=== PATIENT | male | born 1940 | race Native Hawaiian/Other Pacific Islander ===

== ENCOUNTER 2018-05-02 03:31 | Observation (INO) | payer MEDICARE ==
[2018-01-31 10:27] VITALS: BMI 21.1
[2018-05-02 05:06] LABS: ALB/GLOB RATIO 1.4 (1.0-2.1); ALT/SGPT 24 U/L (21-72); AST/SGOT 35 U/L (17-59); BLOOD UREA NITROGEN 17 mg/dL (9-20); CALCIUM 8.7 mg/dl (8.6-10.4); GFR NON-AFRICAN AMERICAN > 60
[2018-05-02 05:16] LABS: BASO # 0.1 K/uL (0.0-0.2); BASO % 2.1 % (0.0-2.0); EOS # 0.3 K/uL (0.0-0.7); EOS % 6.4 % (0.0-4.0); HEMOGLOBIN 14.4 g/dL (12.0-18.0); LYMPH # 1.2 K/uL (1.0-4.3); LYMPH % 22.8 % (20.0-40.0); MEAN CELL VOLUME 95.4 fL (80.0-94.0); MEAN CORPUSCULAR HEMOGLOBIN 31.6 pg (27.0-31.0); MEAN CORPUSCULAR HGB CONC 33.1 g/dL (33.0-37.0); MONO # 0.4 K/uL (0.0-0.8); MONO % 6.9 % (0.0-10.0); NEUT # 3.3 K/uL (1.8-7.0); NEUT % 61.8 % (50.0-75.0); NRBC % 0.1 % (0.0-2.0); RBC 4.56 Mil/uL (4.40-5.90); RED CELL DISTRIBUTION WIDTH 12.8 % (11.5-14.5); WHITE BLOOD COUNT 5.4 K/uL (4.8-10.8)
--- NOTE | 2018-05-02 05:32 | C.PDOC ---
History Of Present Illness 77 year old male presents to the ER with a complaint of intermittent chest pain for the past 2 days. Patient states the pain usually occurs when he is at rest, when he is active and walking he feels fine. He reports having stents placed in 01/2018. at bedside states that after stent placement patient's HTN medication was changed and since then his blood pressure has been more elevated. Denies cough, SOB, abdominal pain, or leg swelling. Time Seen by Provider: 05/02/18 04:27 Chief Complaint (Nursing): Chest Pain History Per: Patient History/Exam Limitations: no limitations Onset/Duration Of Symptoms: Days (2), Intermittent Episodes Current Symptoms Are (Timing): Still Present Associated Symptoms: denies: Nausea, Dyspnea, Diaphoresis, Syncope Modifying Factors: None Exacerbating Factors: None Alleviating Factors: None Recent travel outside of the [place]: No Past Medical History Reviewed: Historical Data, Nursing Documentation, Vital Signs Vital Signs: Last Vital Signs Temp 97.5 F L 05/02/18 03:39 Pulse 85 05/02/18 03:39 Resp 14 05/02/18 03:39 BP 195/101 H 05/02/18 03:39 Pulse Ox 98 05/02/18 03:39 - Medical History PMH: HTN Denies: Chronic Kidney Disease - [facility] Procedures FLUOROSCOPY OF LEFT HEART USING LOW OSMOLAR CONTRAST (01/26/18) FLUOROSCOPY OF MULT COR ART USING L OSM CONTRAST (01/26/18) MEASURE OF CARDIAC SAMPL & PRESSURE, L HEART, PERC APPROACH (01/26/18) TETANUS TOXOID ADMINIST (05/15/02) Family History: States: Unknown Family Hx - Social History Hx Alcohol Use: No Hx Substance Use: No - Immunization History Hx Tetanus Toxoid Vaccination: No Hx Influenza Vaccination: No Hx Pneumococcal Vaccination: No Review Of Systems Constitutional: Negative for: Fever, Chills Cardiovascular: Positive for: Chest Pain Respiratory: Negative for: Cough, Shortness of Breath Gastrointestinal: Negative for: Nausea, Vomiting Musculoskeletal: Negative for: Neck Pain, Shoulder Pain, Arm Pain Neurological: Negative for: Weakness, Numbness Physical Exam - Physical Exam Appears: Non-toxic, Chronically Ill Skin: Normal Color, Warm, Dry, No Rash Head: Atraumatic, Normacephalic Eye(s): bilateral: Normal Inspection Oral Mucosa: Moist Neck: Normal ROM, No Midline Cervical Tenderness, No Paracervical Tenderness, Supple Chest: Symmetrical, No Tenderness Cardiovascular: Rhythm Regular Respiratory: Normal Breath Sounds, No Rales, No Rhonchi, No Wheezing Gastrointestinal/Abdominal: Soft, No Tenderness Back: No CVA Tenderness Extremity: Normal ROM (x4), No Tenderness, No Swelling Neurological/Psych: Oriented x3, Normal Speech, Normal Motor Gait: Steady ED Course And Treatment - Laboratory Results Result Diagrams: 05/02/18 04:43 05/02/18 04:43 ECG: Interpreted By Me, Viewed By Me ECG Rhythm: Sinus Rhythm ECG Interpretation: Normal Rate From EC O2 Sat by Pulse Oximetry: 98 (Room air) Pulse Ox Interpretation: Normal - Radiology CXR: Interpreted by Me CXR Interpretation: Yes: Other (RML hazy opacity). No: Cardiomegaly Medical Decision Making Medical Decision Making: EKG, blood work, and CXR ordered. Aspirin administered. [facility] to [facility] the patient to his service. CXR shows hazy opacity. CT scan of the chest ordered. Disposition - Disposition Disposition: HOSPITALIZED Disposition Time: 06:20 Condition: STABLE Forms: [facility] (Kyrgyz) - Clinical Impression Clinical Impression: Chest pain - PA / PROPERTY CLAIM REP / Resident Statement MD/DO has reviewed & agrees with the documentation as recorded. - Scribe Statement The provider has reviewed the documentation as recorded by the Scribe Rayshawn Bone All medical record entries made by the Scribe were at my direction and personally dictated by me. I have reviewed the chart and agree that the record accurately reflects my personal performance of the history, physical exam, medical decision making, and the department course for this patient. I have also personally directed, reviewed, and agree with the discharge instructions and disposition.
[2018-05-02] MEDS ORDERED: Nitroglycerin 2% Ointment Foilpak UD TOP STA (06:31)
[2018-05-02] MEDS ORDERED: Nitroglycerin 2% Ointment Foilpak UD TOP ONE ×2 (06:36→15:00)
--- NOTE | 2018-05-02 07:47 | CP.PCM.HP ---
<Catrina Yen - Last Filed: 05/02/18 09:05> History of Present Illness - History of Present Illness History of Present Illness: Catrina Yen PGY1 H&P for Dr. Gamez Pt is a 77M with PMH of HTN and CAD s/p stents in 01/25, presented to ED with chest pain for 2 days. Pt reports discomfort for the past 2 days in the chest b/l. He describes it as intermittent, and upon rest, with no chest paint with activity. He says the pain worsened today which prompted his ED visit. He attributes his chest pain to his high blood pressure. He reported associated sweating, but denies dizziness, blurry vision, palpitations, nausea, or radiation of the pain. He denies abdominal pain, diarrhea, dysuria. SxH: denies SocH: former >30 pack yr smoker, quit 10 years ago FamH: denies Allergies: NKDA Meds: losartan/HCTZ 100/12.5mg PO daily, toprol XL 25mg PO daily, crestor 10mg PO daily, oxybutynin 5mg PO daily, ASA 81mg PO daily PMD: Nigel Gonzalez Present on Admission - Present on Admission Any Indicators Present on Admission: No Review of Systems - Constitutional Constitutional: Excessive Sweating. absent: Weakness - EENT Eyes: absent: Blurred Vision - Cardiovascular Cardiovascular: Chest Pain, Chest Pain at Rest, Diaphoresis. absent: Chest Pain with Activity, Dyspnea, Pain Radiating to Arm/Neck/Jaw, Lightheadedness, Palpitations - Gastrointestinal Gastrointestinal: absent: Abdominal Pain, Nausea, Vomiting - Genitourinary Genitourinary: absent: Dysuria - Neurological Neurological: absent: Confusion, Headaches, Vertigo Past Patient History - Infectious Disease Hx of Infectious Diseases: None - Past Medical History & Family History Past Medical History?: Yes - Past Social History Smoking Status: Never Smoked - CARDIAC Hx Hypertension: Yes - PULMONARY Hx Respiratory Disorders: No - NEUROLOGICAL Hx Neurological Disorder: No - HEENT Hx HEENT Problems: No - RENAL Hx Chronic Kidney Disease: No - ENDOCRINE/METABOLIC Hx Endocrine Disorders: No - HEMATOLOGICAL/ONCOLOGICAL Hx Blood Disorders: No - INTEGUMENTARY Hx Dermatological Problems: No - MUSCULOSKELETAL/RHEUMATOLOGICAL Hx Musculoskeletal Disorders: No Hx Falls: No - GASTROINTESTINAL Hx Gastrointestinal Disorders: No - GENITOURINARY/GYNECOLOGICAL Hx Prostate Problems: Yes - PSYCHIATRIC Hx Substance Use: No - SURGICAL HISTORY Hx Surgeries: Yes (BILATERAL CATARACT SX, PROSTATE SX 4 YRS AGO,) - ANESTHESIA Hx Anesthesia: No Meds Allergies/Adverse Reactions: Allergies Allergy/AdvReac Type Severity Reaction Status Date / Time No Known Allergies Allergy Verified 05/02/18 03:42 Physical Exam - Constitutional Appears: Well, No Acute Distress - Head Exam Head Exam: ATRAUMATIC, NORMOCEPHALIC - Eye Exam Eye Exam: EOMI, PERRL - ENT Exam ENT Exam: Mucous Membranes Moist - Respiratory Exam Respiratory Exam: Clear to Auscultation Bilateral, NORMAL BREATHING PATTERN. absent: Rales, Rhonchi, Wheezes - Cardiovascular Exam Cardiovascular Exam: REGULAR RHYTHM, +S1, +S2. absent: Gallop, Rubs, Systolic Murmur - GI/Abdominal Exam GI & Abdominal Exam: Normal Bowel Sounds, Soft. absent: Distended, Tenderness - Extremities Exam Extremities exam: Positive for: normal inspection. Negative for: pedal edema - Neurological Exam Neurological exam: Alert, CN II-XII Intact, Oriented x3 - Psychiatric Exam Psychiatric exam: Normal Affect, Normal Mood - Skin Skin Exam: Dry, Normal Color Results - Vital Signs Recent Vital Signs: Last Vital Signs Temp 97.5 F L 05/02/18 03:39 Pulse 78 05/02/18 07:10 Resp 19 05/02/18 07:10 BP 165/94 H 05/02/18 07:10 Pulse Ox 99 05/02/18 07:10 - Labs Result Diagrams: 05/02/18 04:43 05/02/18 04:43 Labs: Laboratory Results - last 24 hr 05/02/18 05/02/18 05/02/18 04:43 04:43 04:43 WBC 5.4 RBC 4.56 Hgb 14.4 Hct 43.5 MCV 95.4 H MCH 31.6 H MCHC 33.1 RDW 12.8 Plt Count 201 MPV 9.0 Neut % (Auto) 61.8 Lymph % (Auto) 22.8 [place] % (Auto) 6.9 Eos % (Auto) 6.4 H Baso % (Auto) 2.1 H Neut # (Auto) 3.3 Lymph # (Auto) 1.2 [place] # (Auto) 0.4 Eos # (Auto) 0.3 Baso # (Auto) 0.1 PT 11.0 INR 1.0 APTT 35 H Sodium 135 Potassium 3.3 L Chloride 100 Carbon Dioxide 26 Anion Gap 12 BUN 17 Creatinine 1.0 Est GFR ( Amer) > 60 Est GFR (Non-Af Amer) > 60 Random Glucose 115 H Calcium 8.7 Total Bilirubin 0.6 AST 35 ALT 24 Alkaline Phosphatase 65 Troponin I < 0.0120 Total Protein 6.9 Albumin 4.0 Globulin 2.9 Albumin/Globulin Ratio 1.4 Assessment & Plan - Assessment and Plan (Free Text) Assessment: Pt is a 77M with PMH of HTN and CAD s/p 2 stents in 01/25, presented to ED with chest pain for 2 days, admitted for r/o ACS. First troponin negative. Plan: Chest Pain - h/o CAD, s/p 2 ISELA in 01/2018 after found to have NSTEMI and high grade stenosis of L circumflex and diagonal a. - pt reports intermittent mild chest pain for 2 days - received ASA and nitro SL and paste in ED, reports relief - EKG: NSR - trop neg x1 - CT chest: questionable R sided mass, f/u official read - ECHO 01/25: normal LV function, mild TR, moderate pulmonary HTN - continue home ASA 81mg PO daily - brillinta 90mg PO BID - nitro paste 1/2 inch topical - lovenox 60mg SC BID - crestor 10mg PO HS - f/u remaining trops - Cardiology consulted, Dr. Cabrera - f/u recs Hypokalemia - K+ 3.3 on admission - repleted, monitor on daily CMP H/o HTN - continue home losartan/HCTZ 100/12.5mg PO daily - continue home metoprolol succinate 25mg PO daily PPX GI: pepcid 20mg po BID DVT: therapeutic lovenox HHD Case reviewed and plan discussed with Dr. Gamez <Dar Gamez - Last Filed: 05/02/18 09:25> Results - Vital Signs Recent Vital Signs: Last Vital Signs Temp 97.7 F 05/02/18 07:15 Pulse 70 05/02/18 08:29 Resp 18 05/02/18 07:15 BP 136/71 05/02/18 07:45 Pulse Ox 96 05/02/18 07:15 - Labs Result Diagrams: 05/02/18 04:43 05/02/18 04:43 Labs: Laboratory Results - last 24 hr 05/02/18 05/02/18 05/02/18 04:43 04:43 04:43 WBC 5.4 RBC 4.56 Hgb 14.4 Hct 43.5 MCV 95.4 H MCH 31.6 H MCHC 33.1 RDW 12.8 Plt Count 201 MPV 9.0 Neut % (Auto) 61.8 Lymph % (Auto) 22.8 [place] % (Auto) 6.9 Eos % (Auto) 6.4 H Baso % (Auto) 2.1 H Neut # (Auto) 3.3 Lymph # (Auto) 1.2 [place] # (Auto) 0.4 Eos # (Auto) 0.3 Baso # (Auto) 0.1 PT 11.0 INR 1.0 APTT 35 H Sodium 135 Potassium 3.3 L Chloride 100 Carbon Dioxide 26 Anion Gap 12 BUN 17 Creatinine 1.0 Est GFR ( Amer) > 60 Est GFR (Non-Af Amer) > 60 Random Glucose 115 H Calcium 8.7 Total Bilirubin 0.6 AST 35 ALT 24 Alkaline Phosphatase 65 Troponin I < 0.0120 Total Protein 6.9 Albumin 4.0 Globulin 2.9 Albumin/Globulin Ratio 1.4 Attending/Attestation - Attestation I have personally seen and examined this patient.: Yes I have fully participated in the care of the patient.: Yes I have reviewed all pertinent clinical information: Yes Notes (Text): 05/02/18 09:17 Medical attending: Patient was seen and examined by me. Agree with the above note by the resident The patient was not in any acute distress when we came and saw however he reported that he had relief with the administration of the topical nitroglycerin as well as the SL nitroglycerin The patient was here in January from a NSTEMI at that time and it appears he had two ISELA. We will need to consult his licensing officer. The first troponin was negative however will cover patient with Lovenox 60 SQ BID for the time being and also he probably was on brillinta or plavix - he says he does not remember but we will place brillinta for the time being while we try to find pharmacy number Also a CT scan was done - the official read is pending however per my own review he has an irregular shaped pleural mass maybe 1 cm x 2 cm R lung at the border of the lower and upper lobes. We will have to see what the official report says. I looked at a CT in 2013 and he did not have those findings then. There is a smoking history he says. Patient denied sputum production or fever. Depending on the report he may need further work up Dar Gamez
[2018-05-02 08:15] VITALS: RESP 18; TEMP 97.7; O2SAT 96
[2018-05-02] MEDS: Potassium Chloride 20 mEq/15 ml LIQ UD PO SCH ×2 (08:55→14:33)
[2018-05-02 09:53] VITALS: BP 124/74
[2018-05-02] MEDS ORDERED: Enoxaparin 40 mg Syringe SC SCH (10:00)
[2018-05-02] MEDS ORDERED: Metoprolol Succinate 25 mg XL Tab PO SCH (10:00)
[2018-05-02] MEDS ORDERED: Enoxaparin 60 mg Syringe SC SCH (10:00)
--- NOTE | 2018-05-02 10:36 | CT ---
Date of service: 05/02/2018 PROCEDURE: CT Chest without contrast HISTORY: chest pain, hazy opacity in the right middle lobe COMPARISON: None available. TECHNIQUE: Contiguous axial images were obtained through the chest without intravenous contrast enhancement. Sagittal and coronal reconstructions were performed. Radiation dose: Total exam DLP = 158.58 mGy-cm. This CT exam was performed using one or more of the following dose reduction techniques: Automated exposure control, adjustment of the mA and/or kV according to patient size, and/or use of iterative reconstruction technique. FINDINGS: LUNGS: 3.4 x 1.0 centimeter subpleural opacity in the right lower lobe with spiculated margins. This could represent pneumonia though malignancy is not excluded. MEDIASTINUM: Unremarkable thoracic aorta. No aneurysm. Normal sized heart. Main pulmonary artery unremarkable. No vascular congestion. No lymphadenopathy. No aortic atherosclerotic calcification. PLEURA: No pleural fluid. No pneumothorax. BONES: No fracture. No destructive lesion. UPPER ABDOMEN: Grossly unremarkable. OTHER FINDINGS: None. IMPRESSION: 3.4 x 1.0 centimeter subpleural opacity in the right lower lobe with spiculated margins. This could represent pneumonia though malignancy is not excluded.
--- NOTE | 2018-05-02 11:05 | RAD ---
Date of service: 05/02/2018 HISTORY: chest pain COMPARISON: 01/26/2018. FINDINGS: LUNGS: No active pulmonary disease. PLEURA: No significant pleural effusion identified, no pneumothorax apparent. CARDIOVASCULAR: Atherosclerotic calcifications identified primarily in the aortic arch. No radiographic findings to suggest acute or significant cardiovascular disease. OSSEOUS STRUCTURES: No significant abnormalities. VISUALIZED UPPER ABDOMEN: Normal. OTHER FINDINGS: None. IMPRESSION: No active disease. No significant interval change compared to the prior examination(s).
[2018-05-02 12:27] VITALS: PULSE 53
--- NOTE | 2018-05-02 14:03 | CP.PCM.DIS ---
<FarshadPauldeucesydnee - Last Filed: 05/02/18 13:58> Provider - Provider Date of Admission: 05/02/18 06:22 Attending physician: Dar Gamez DO Consults: 05/02/18 09:02 Cardiology Consult Routine Comment: Consulting Provider: Jesus Alberto Cabrera Consulting Physician: Jesus Alberto Cabrera Reason for Consult: pt with chest pain, h/o CAD s/p 2 stents in L circumflex 01/2505/02/18 13:33 Pulmonology Consult Routine Comment: Consulting Provider: Dann Perea Consulting Physician: Dann Perea Reason for Consult: pt w/ chest pain, CT showing R sided mass concerning for malignancy Time Spent in preparation of Discharge (in minutes): 70 Hospital Course - Lab Results Lab Results: Most Recent Lab Values WBC 5.4 K/uL (4.8-10.8) 05/02/18 04:43 RBC 4.56 Mil/uL (4.40-5.90) 05/02/18 04:43 Hgb 14.4 g/dL (12.0-18.0) 05/02/18 04:43 Hct 43.5 % (35.0-51.0) 05/02/18 04:43 MCV 95.4 fL (80.0-94.0) H 05/02/18 04:43 MCH 31.6 pg (27.0-31.0) H 05/02/18 04:43 MCHC 33.1 g/dL (33.0-37.0) 05/02/18 04:43 RDW 12.8 % (11.5-14.5) 05/02/18 04:43 Plt Count 201 K/uL (130-400) 05/02/18 04:43 MPV 9.0 fL (7.2-11.7) 05/02/18 04:43 Neut % (Auto) 61.8 % (50.0-75.0) 05/02/18 04:43 Lymph % (Auto) 22.8 % (20.0-40.0) 05/02/18 04:43 [place] % (Auto) 6.9 % (0.0-10.0) 05/02/18 04:43 Eos % (Auto) 6.4 % (0.0-4.0) H 05/02/18 04:43 Baso % (Auto) 2.1 % (0.0-2.0) H 05/02/18 04:43 Neut # (Auto) 3.3 K/uL (1.8-7.0) 05/02/18 04:43 Lymph # (Auto) 1.2 K/uL (1.0-4.3) 05/02/18 04:43 [place] # (Auto) 0.4 K/uL (0.0-0.8) 05/02/18 04:43 Eos # (Auto) 0.3 K/uL (0.0-0.7) 05/02/18 04:43 Baso # (Auto) 0.1 K/uL (0.0-0.2) 05/02/18 04:43 PT 11.0 SECONDS (9.7-12.2) 05/02/18 04:43 INR 1.0 05/02/18 04:43 APTT 35 SECONDS (21-34) H 05/02/18 04:43 Sodium 135 mmol/L (132-148) 05/02/18 04:43 Potassium 3.3 mmol/L (3.6-5.2) L 05/02/18 04:43 Chloride 100 mmol/L (98-107) 05/02/18 04:43 Carbon Dioxide 26 mmol/L (22-30) 05/02/18 04:43 Anion Gap 12 (10-20) 05/02/18 04:43 BUN 17 mg/dL (9-20) 05/02/18 04:43 Creatinine 1.0 mg/dL (0.8-1.5) 05/02/18 04:43 Est GFR ( Amer) > 60 05/02/18 04:43 Est GFR (Non-Af Amer) > 60 05/02/18 04:43 Random Glucose 115 mg/dL (75-110) H 05/02/18 04:43 Calcium 8.7 mg/dl (8.6-10.4) 05/02/18 04:43 Total Bilirubin 0.6 mg/dL (0.2-1.3) 05/02/18 04:43 AST 35 U/L (17-59) 05/02/18 04:43 ALT 24 U/L (21-72) 05/02/18 04:43 Alkaline Phosphatase 65 U/L (38-126) 05/02/18 04:43 Troponin I < 0.0120 ng/mL (0.00-0.120) 05/02/18 10:54 Total Protein 6.9 g/dL (6.3-8.3) 05/02/18 04:43 Albumin 4.0 g/dL (3.5-5.0) 05/02/18 04:43 Globulin 2.9 gm/dL (2.2-3.9) 05/02/18 04:43 Albumin/Globulin Ratio 1.4 (1.0-2.1) 05/02/18 04:43 - Hospital Course Hospital Course: Upon Admission: Pt is a 77M with PMH of HTN and CAD s/p stents in 01/25, presented to ED with chest pain for 2 days. Pt reports discomfort for the past 2 days in the chest b/l. He describes it as intermittent, and upon rest, with no chest paint with activity. He says the pain worsened today which prompted his ED visit. He attributes his chest pain to his high blood pressure. He reported associated sweating, but denies dizziness, blurry vision, palpitations, nausea, or radiation of the pain. He denies abdominal pain, diarrhea, dysuria. Pt was given nitro sublingual and paste, and ASA in the ED. Chest pain resolved. EKG showed normal sinus rhythm. Troponins x2 were negative Pt was admitted for chest pain r/o ACS. Hospital Course: CT chest showed a R sided pleural mass, questionable for malignancy. Pt felt the chest pain resolved. Cardio was consulted and recommended plavix. Pulmonology was consulted and recommended outpatient follow up for the questionable mass. Pt was deemed stable for discharge, as the chest pain was considered non-cardiac related. Upon Discharge: Pt was deemed stable for discharge to home. Pt was instructed to follow up with this primary care physician and Dr. Perea within 2 weeks. He was given a 10 day course of avelox. Pt understood instructions and agreed. Discharge Exam - Head Exam Head Exam: ATRAUMATIC, NORMOCEPHALIC - Eye Exam Eye Exam: EOMI, PERRL Pupil Exam: NORMAL ACCOMODATION - Respiratory Exam Respiratory Exam: Clear to PA & Lateral, NORMAL BREATHING PATTERN. absent: Rales, Rhonchi, Wheezes - Cardiovascular Exam Cardiovascular Exam: REGULAR RHYTHM, +S1, +S2. absent: Gallop, Rubs, Systolic Murmur - GI/Abdominal Exam GI & Abdominal Exam: Normal Bowel Sounds, Soft. absent: Distended, Tenderness - Neurological Exam Neurological exam: Alert, CN II-XII Intact, Normal Gait, Oriented x3 - Psychiatric Exam Psychiatric exam: Normal Affect, Normal Mood - Skin Skin Exam: Normal Color Discharge Plan - Discharge Medications Prescriptions: RX: Aspirin [Aspirin Chewable] 81 mg PO DAILY #30 chew RX: Clopidogrel [Plavix] 75 mg PO DAILY #30 tab RX: Losartan/Hydrochlorothiazide [Losartan-Hctz 100-12.5 mg Tab] 1 tab PO DAILY #30 tablet RX: Metoprolol Succinate XL [Toprol XL] 25 mg PO DAILY #30 tab Moxifloxacin [Avelox] 400 mg PO DAILY #10 tab RX: Oxybutynin [Ditropan Tab] 5 mg PO DAILY #30 tab RX: Rosuvastatin Calcium [Crestor] 10 mg PO HS #30 tab - Follow Up Plan Condition: STABLE Disposition: HOME/ ROUTINE Instructions: High Blood Pressure (DC), Moxifloxacin (Systemic), Chest Pain (DC), Low Salt Diet Additional Instructions: Please follow up with your Primary Care physician Dr. Gonzalez within 1 week. Please follow up with Dr. Perea, Resp Therapist, within 2 weeks. Please take avelox for 10 days. Please take your medications as prescribed. Please return to the emergency department if symptoms return. Take care and be well. Referrals: Dann Perea MD [Staff Provider] - <Dar Gamez - Last Filed: 05/02/18 15:07> Provider - Provider Date of Admission: 05/02/18 06:22 Attending physician: Dar Gamez DO Consults: 05/02/18 09:02 Cardiology Consult Routine Comment: Consulting Provider: Jesus Alberto Cabrera Consulting Physician: Jesus Alberto Cabrera Reason for Consult: pt with chest pain, h/o CAD s/p 2 stents in L circumflex 01/2505/02/18 13:33 Pulmonology Consult Routine Comment: Consulting Provider: Dann Perea Consulting Physician: Dann Perea Reason for Consult: pt w/ chest pain, CT showing R sided mass concerning for malignancy Hospital Course - Lab Results Lab Results: Most Recent Lab Values WBC 5.4 K/uL (4.8-10.8) 05/02/18 04:43 RBC 4.56 Mil/uL (4.40-5.90) 05/02/18 04:43 Hgb 14.4 g/dL (12.0-18.0) 05/02/18 04:43 Hct 43.5 % (35.0-51.0) 05/02/18 04:43 MCV 95.4 fL (80.0-94.0) H 05/02/18 04:43 MCH 31.6 pg (27.0-31.0) H 05/02/18 04:43 MCHC 33.1 g/dL (33.0-37.0) 05/02/18 04:43 RDW 12.8 % (11.5-14.5) 05/02/18 04:43 Plt Count 201 K/uL (130-400) 05/02/18 04:43 MPV 9.0 fL (7.2-11.7) 05/02/18 04:43 Neut % (Auto) 61.8 % (50.0-75.0) 05/02/18 04:43 Lymph % (Auto) 22.8 % (20.0-40.0) 05/02/18 04:43 [place] % (Auto) 6.9 % (0.0-10.0) 05/02/18 04:43 Eos % (Auto) 6.4 % (0.0-4.0) H 05/02/18 04:43 Baso % (Auto) 2.1 % (0.0-2.0) H 05/02/18 04:43 Neut # (Auto) 3.3 K/uL (1.8-7.0) 05/02/18 04:43 Lymph # (Auto) 1.2 K/uL (1.0-4.3) 05/02/18 04:43 [place] # (Auto) 0.4 K/uL (0.0-0.8) 05/02/18 04:43 Eos # (Auto) 0.3 K/uL (0.0-0.7) 05/02/18 04:43 Baso # (Auto) 0.1 K/uL (0.0-0.2) 05/02/18 04:43 PT 11.0 SECONDS (9.7-12.2) 05/02/18 04:43 INR 1.0 05/02/18 04:43 APTT 35 SECONDS (21-34) H 05/02/18 04:43 Sodium 135 mmol/L (132-148) 05/02/18 04:43 Potassium 3.3 mmol/L (3.6-5.2) L 05/02/18 04:43 Chloride 100 mmol/L (98-107) 05/02/18 04:43 Carbon Dioxide 26 mmol/L (22-30) 05/02/18 04:43 Anion Gap 12 (10-20) 05/02/18 04:43 BUN 17 mg/dL (9-20) 05/02/18 04:43 Creatinine 1.0 mg/dL (0.8-1.5) 05/02/18 04:43 Est GFR ( Amer) > 60 05/02/18 04:43 Est GFR (Non-Af Amer) > 60 05/02/18 04:43 Random Glucose 115 mg/dL (75-110) H 05/02/18 04:43 Calcium 8.7 mg/dl (8.6-10.4) 05/02/18 04:43 Total Bilirubin 0.6 mg/dL (0.2-1.3) 05/02/18 04:43 AST 35 U/L (17-59) 05/02/18 04:43 ALT 24 U/L (21-72) 05/02/18 04:43 Alkaline Phosphatase 65 U/L (38-126) 05/02/18 04:43 Troponin I < 0.0120 ng/mL (0.00-0.120) 05/02/18 10:54 Total Protein 6.9 g/dL (6.3-8.3) 05/02/18 04:43 Albumin 4.0 g/dL (3.5-5.0) 05/02/18 04:43 Globulin 2.9 gm/dL (2.2-3.9) 05/02/18 04:43 Albumin/Globulin Ratio 1.4 (1.0-2.1) 05/02/18 04:43 Attending/Attestation - Attestation I have personally seen and examined this patient.: Yes I have fully participated in the care of the patient.: Yes I have reviewed all pertinent clinical information, including history, physical exam and plan: Yes Notes (Text): 05/02/18 15:00 Medical attending: Patient was seen and examined by me. Agree with the above note by the medical historian. Patient was seen and evaluated by cardiology and pulmonary service today. I spoke with both cardiology as well as pulmonology - we will let patient go home today with PO Avelox. However he will need to follow up in two weeks with pulmonary because of the CT scan findings with the R lung. Per discussion with pulmonary he may require another CT scan in two weeks and if there is a need to - a biopsy can be done at that point for further information Dar Gamez
--- NOTE | 2018-05-02 14:07 | CP.PCM.CON ---
History of Present Illness - History of Present Illness History of Present Illness: reason for consultation: abnormal CAT scan of the chest 77-year-old male with history of coronary artery disease status post stent velasquez cement, hypertension, long history of smoking presented to emergency room with chest pain. CAT scan of the chest consistent with right lower lobe pleural-based density. Denies cough, denies fever chills SocH: former >30 pack yr smoker, quit 10 years ago FamH: denies Allergies: NKDA Meds: losartan/HCTZ 100/12.5mg PO daily, toprol XL 25mg PO daily, crestor 10mg PO daily, oxybutynin 5mg PO daily, ASA 81mg PO daily PMD: Nigel Gonzalez Review of Systems - Review of Systems All systems: reviewed and no additional remarkable complaints except (chest pain) Past Patient History - Infectious Disease Hx of Infectious Diseases: None - Past Medical History & Family History Past Medical History?: Yes - Past Social History Smoking Status: Never Smoked - CARDIAC Hx Hypertension: Yes - PULMONARY Hx Respiratory Disorders: No - NEUROLOGICAL Hx Neurological Disorder: No - HEENT Hx HEENT Problems: No - RENAL Hx Chronic Kidney Disease: No - ENDOCRINE/METABOLIC Hx Endocrine Disorders: No - HEMATOLOGICAL/ONCOLOGICAL Hx Blood Disorders: No - INTEGUMENTARY Hx Dermatological Problems: No - MUSCULOSKELETAL/RHEUMATOLOGICAL Hx Musculoskeletal Disorders: No Hx Falls: No - GASTROINTESTINAL Hx Gastrointestinal Disorders: No - GENITOURINARY/GYNECOLOGICAL Hx Prostate Problems: Yes - PSYCHIATRIC Hx Substance Use: No - SURGICAL HISTORY Hx Surgeries: Yes (BILATERAL CATARACT SX, PROSTATE SX 4 YRS AGO,) - ANESTHESIA Hx Anesthesia: No Meds Home Medications: Home Medication List Medication Instructions Recorded Confirmed Type Aspirin [Aspirin Chewable] 81 mg PO DAILY #30 chew 05/02/18 Rx Clopidogrel [Plavix] 75 mg PO DAILY #30 tab 05/02/18 Rx Losartan/Hydrochlorothiazide 1 tab PO DAILY #30 tablet 05/02/18 Rx [Losartan-Hctz 100-12.5 mg Tab] Metoprolol Succinate XL [Toprol XL] 25 mg PO DAILY #30 tab 05/02/18 Rx Moxifloxacin [Avelox] 400 mg PO DAILY #10 tab 05/02/18 Rx Oxybutynin [Ditropan Tab] 5 mg PO DAILY #30 tab 05/02/18 Rx Rosuvastatin Calcium [Crestor] 10 mg PO HS #30 tab 05/02/18 Rx Allergies/Adverse Reactions: Allergies Allergy/AdvReac Type Severity Reaction Status Date / Time No Known Allergies Allergy Verified 05/02/18 03:42 - Medications Medications: Current Medications Aspirin (Aspirin Chewable) 81 mg PO DAILY [facility] Last Admin: 05/02/18 09:53 Dose: 81 mg Clopidogrel Bisulfate (Plavix) 75 mg PO DAILY [facility] Last Admin: 05/02/18 10:53 Dose: 75 mg Enoxaparin Sodium (Lovenox) 40 mg SC DAILY [facility] Famotidine (Pepcid) 20 mg PO BID [facility] Last Admin: 05/02/18 09:53 Dose: 20 mg Hydrochlorothiazide (Microzide) 12.5 mg PO DAILY [facility] Last Admin: 05/02/18 09:53 Dose: 12.5 mg Azithromycin 500 mg/ Sodium (Chloride) 250 mls @ 250 mls/hr IVPB Q24H [facility]; Protocol Ceftriaxone Sodium 1 gm/ (Sodium Chloride) 100 mls @ 100 mls/hr IVPB DAILY [facility]; Protocol Losartan Potassium (Cozaar) 100 mg PO DAILY [facility] Last Admin: 05/02/18 09:53 Dose: 100 mg Metoprolol Succinate (Toprol Xl) 25 mg PO DAILY [facility] Last Admin: 05/02/18 09:53 Dose: 25 mg Nitroglycerin (Nitro-Bid 2% Oint) 1 ea TOP ONCE ONE Stop: 05/02/18 15:01 Oxybutynin Chloride (Ditropan Tab) 5 mg PO DAILY [facility] Last Admin: 05/02/18 10:53 Dose: 5 mg Rosuvastatin Calcium (Crestor) 10 mg PO [facility] Physical Exam - Head Exam Head Exam: ATRAUMATIC, NORMOCEPHALIC - ENT Exam ENT Exam: Mucous Membranes Moist - Neck Exam Neck exam: Positive for: Normal Inspection - Respiratory Exam Respiratory Exam: Clear to Auscultation Bilateral - Cardiovascular Exam Cardiovascular Exam: REGULAR RHYTHM - GI/Abdominal Exam GI & Abdominal Exam: Normal Bowel Sounds, Soft - Extremities Exam Extremities exam: Positive for: normal inspection - Neurological Exam Neurological exam: Alert, Oriented x3 Results - Vital Signs Recent Vital Signs: Last Vital Signs Temp 97.7 F 05/02/18 07:15 Pulse 53 L 05/02/18 12:14 Resp 18 05/02/18 07:15 BP 124/74 05/02/18 09:52 Pulse Ox 96 05/02/18 07:15 - Labs Result Diagrams: 05/02/18 04:43 05/02/18 04:43 Labs: Laboratory Results - last 24 hr 05/02/18 05/02/18 05/02/18 04:43 04:43 04:43 WBC 5.4 RBC 4.56 Hgb 14.4 Hct 43.5 MCV 95.4 H MCH 31.6 H MCHC 33.1 RDW 12.8 Plt Count 201 MPV 9.0 Neut % (Auto) 61.8 Lymph % (Auto) 22.8 [place] % (Auto) 6.9 Eos % (Auto) 6.4 H Baso % (Auto) 2.1 H Neut # (Auto) 3.3 Lymph # (Auto) 1.2 [place] # (Auto) 0.4 Eos # (Auto) 0.3 Baso # (Auto) 0.1 PT 11.0 INR 1.0 APTT 35 H Sodium 135 Potassium 3.3 L Chloride 100 Carbon Dioxide 26 Anion Gap 12 BUN 17 Creatinine 1.0 Est GFR ( Amer) > 60 Est GFR (Non-Af Amer) > 60 Random Glucose 115 H Calcium 8.7 Total Bilirubin 0.6 AST 35 ALT 24 Alkaline Phosphatase 65 Troponin I < 0.0120 Total Protein 6.9 Albumin 4.0 Globulin 2.9 Albumin/Globulin Ratio 1.4 05/02/18 10:54 WBC RBC Hgb Hct MCV MCH MCHC RDW Plt Count MPV Neut % (Auto) Lymph % (Auto) [place] % (Auto) Eos % (Auto) Baso % (Auto) Neut # (Auto) Lymph # (Auto) [place] # (Auto) Eos # (Auto) Baso # (Auto) PT INR APTT Sodium Potassium Chloride Carbon Dioxide Anion Gap BUN Creatinine Est GFR ( Amer) Est GFR (Non-Af Amer) Random Glucose Calcium Total Bilirubin AST ALT Alkaline Phosphatase Troponin I < 0.0120 Total Protein Albumin Globulin Albumin/Globulin Ratio Assessment & Plan - Assessment and Plan (Free Text) Assessment: 77-year-old male admitted with chest pain, CAT scan of the chest consistent with pleural based density Pneumonia versus malignancy Avelox for 10 days If no resolution will consider biopsy Patient advised follow up in the office after 2 weeks
[2018-05-02] MEDS ORDERED: Azithromycin 500 MG in Sodium Chloride 0.9% 250 ML IVPB SCH (16:00)
[2018-05-03] MEDS ORDERED: Enoxaparin 40 mg Syringe SC SCH (10:00)
--- NOTE | 2018-05-04 17:55 | CARD ---
APPROVED REPORT Date of service: 05/02/2018 EKG Measurement Heart [id number] <Conclusion> Sinus rhythm with marked sinus arrhythmia Nonspecific ST abnormality Abnormal ECG
== END 2018-05-02 14:35 | disposition home or self-care (01) ==
LOC: C.ER 03:31 → C.9E 06:22 → C.5S 06:36
PROVIDERS: ADMIT Hospitalist; ATTEND Hospitalist
DX: R07.9 Chest pain, unspecified (principal); I10 Essential (primary) hypertension; I25.10 Atherosclerotic heart disease of native coronary artery without angina pectoris; Z79.02 Long term (current) use of antithrombotics/antiplatelets; Z79.899 Other long term (current) drug therapy; Z87.891 Personal history of nicotine dependence; Z95.5 Presence of coronary angioplasty implant and graft
CPT/HCPCS: 36415; 71045; 71250; 80053; 84484; 85025; 85610; 85730; 97161; 99285; G0378; G8978; G8979; G8980; J0696; J1650

== ENCOUNTER 2018-06-02 08:19 | Emergency (ER) | payer MEDICARE ==
[2018-06-02 08:19] VITALS: BMI 21.1
[2018-06-02 08:32] VITALS: O2SAT 97
--- NOTE | 2018-06-02 09:18 | C.PDOC ---
History Of Present Illness 77 y/o male comes in complaining of chest tightness and feeling hot. States he feels some pain on both sides of his chest and mild SOB but no fever, cough, abdominal pain, leg pain, vomiting, or other symptoms. Patient feels no pain at the moment and does not have any pain with deep breaths. Patient was previously admitted to the hospital for pneumonia 2 months ago. Time Seen by Provider: 06/02/18 08:41 Chief Complaint (Nursing): Chest Pain History Per: Patient History/Exam Limitations: no limitations Onset/Duration Of Symptoms: Days Current Symptoms Are (Timing): Still Present Past Medical History Reviewed: Historical Data, Nursing Documentation, Vital Signs Vital Signs: Last Vital Signs Temp 98.0 F 06/02/18 08:30 Pulse 74 06/02/18 08:30 Resp 18 06/02/18 08:30 BP 125/62 06/02/18 08:30 Pulse Ox 97 06/02/18 08:30 - Medical History PMH: HTN, Hypercholesterolemia Denies: Chronic Kidney Disease Surgical History: Denies: Pacemaker - [facility] Procedures FLUOROSCOPY OF LEFT HEART USING LOW OSMOLAR CONTRAST (01/26/18) FLUOROSCOPY OF MULT COR ART USING L OSM CONTRAST (01/26/18) MEASURE OF CARDIAC SAMPL & PRESSURE, L HEART, PERC APPROACH (01/26/18) TETANUS TOXOID ADMINIST (05/15/02) Family History: States: No Known Family Hx - Social History Hx Alcohol Use: No Hx Substance Use: No - Immunization History Hx Tetanus Toxoid Vaccination: No Hx Influenza Vaccination: No Hx Pneumococcal Vaccination: No Review Of Systems Except As Marked, All Systems Reviewed And Found Negative. Constitutional: Negative for: Fever, Chills Cardiovascular: Positive for: Chest Pain Respiratory: Positive for: Shortness of Breath. Negative for: Cough Gastrointestinal: Negative for: Nausea, Vomiting, Abdominal Pain Genitourinary: Negative for: Dysuria Skin: Negative for: Rash Physical Exam - Physical Exam Appears: Non-toxic, No Acute Distress Skin: Warm, Dry Head: Atraumatic, Normacephalic Eye(s): bilateral: Normal Inspection Oral Mucosa: Moist Neck: Supple Cardiovascular: Rhythm Regular, No Murmur Respiratory: Normal Breath Sounds, No Rales, No Rhonchi, No Wheezing Gastrointestinal/Abdominal: Soft, No Tenderness Extremity: No Tenderness, No Pedal Edema, Capillary Refill (less than 2 seconds) Extremity: Bilateral: Normal Color And Temperature, Normal ROM Neurological/Psych: Oriented x3, Normal Speech ED Course And Treatment - Laboratory Results Result Diagrams: 06/02/18 09:29 06/02/18 09:29 O2 Sat by Pulse Oximetry: 97 (RA) Pulse Ox Interpretation: Normal - Other Rad CXR X-Ray: Read By Radiologist Interpretation: FINDINGS: LUNGS: An approximately 18 mm nodular opacity in the mid right lung zone is noted not present are perceived on the 2018 chest x-ray. No definite air bronchograms within it are seen. This chest x-ray current appearance is compatible with the recent CT chest 05/02/2018 appearance of a nodular pleural based soft tissue pathology. Malignancy is the diagnosis of exclusion. PLEURA: No pneumothorax or pleural fluid seen. CARDIOVASCULAR: There is presence of aortic atherosclerotic calcification on x-ray. Minimal cardiomegaly probable. No significant appearing pulmonary venous congestion. OSSEOUS STRUCTURES: No significant abnormalities. VISUALIZED UPPER ABDOMEN: Normal. OTHER FINDINGS: None. IMPRESSION: Right mid lung zone 18 mm nodular opacity corresponding to the right lateral pleural-based nodular soft tissue pathology on the CT chest of 05/02/2018. Malignancy is the diagnosis of exclusion. - CT Scan/US Chest CT Other Rad Studies (CT/US): Read By Radiologist, Radiology Report Reviewed CT/US Interpretation: FINDINGS: PULMONARY ARTERIES: Unremarkable. No pulmonary embolism. AORTA: Atherosclerotic calcification and mural plaque present. Findings are seen throughout the aorta. LUNGS: Redemonstration of pleural base mass superior segment right lower lobe. The mass abuts the pleura including major fissure and measures 1.4 x 3.5 cm. Failure to resolve suggests either a chronic/indolent process or neoplasm. Follow-up recommended. Noninvasive follow-up with PET scan recommended. If tissue sampling is desired the mass is amenable to percutaneous access/sampling. Stable scarring right apex/right upper lobe. PLEURAL SPACES: Unremarkable. No effusion or pneumothorax. HEART: Unremarkable. No cardiomegaly. No significant pericardial effusion. LYMPH NODES: No lymphadenopathy. BONES, CHEST WALL: Unremarkable. No fracture or destructive lesion. OTHER FINDINGS: Unremarkable. IMPRESSION: Unremarkable CT pulmonary angiogram. No pulmonary embolus. Suspicious peripheral pulmonary/pleural mass essentially unchanged compared to 05/02/2018. Failure to resolve requires further evaluation described in greater detail above. Medical Decision Making Medical Decision Making: Plan: --CT Chest --Bloodwork --Chest XR Disposition - Disposition Referrals: Vanessa Gonzalez MD [Medical Doctor] - Jesus Alberto Cabrera MD [Staff Provider] - Disposition: HOME/ ROUTINE Disposition Time: 12:31 Condition: STABLE Additional Instructions: Follow up with the medical doctor within 1-2 days without fail, return if worsened. Instructions: Chest Pain That Is Not Caused by the Heart (DC) Forms: [employer] ([employer]) - Clinical Impression Clinical Impression: Chest discomfort - PA / [employer]NAGER / Resident Statement MD/DO has reviewed & agrees with the documentation as recorded. - Scribe Statement The provider has reviewed the documentation as recorded by the Scribe Domenica Mac All medical record entries made by the Lisa were at my direction and personally dictated by me. I have reviewed the chart and agree that the record accurately reflects my personal performance of the history, physical exam, medical decision making, and the department course for this patient. I have also personally directed, reviewed, and agree with the discharge instructions and disposition.
[2018-06-02 09:35] LABS: BASO # 0.1 K/uL (0.0-0.2); BASO % 1.1 % (0.0-2.0); EOS # 0.1 K/uL (0.0-0.7); EOS % 2.7 % (0.0-4.0); LYMPH # 1.2 K/uL (1.0-4.3); LYMPH % 22.4 % (20.0-40.0); MEAN CELL VOLUME 95.9 fL (80.0-94.0); MEAN CORPUSCULAR HEMOGLOBIN 31.2 pg (27.0-31.0); MEAN CORPUSCULAR HGB CONC 32.6 g/dL (33.0-37.0); MEAN PLATELET VOLUME 8.9 fL (7.2-11.7); MONO # 0.4 K/uL (0.0-0.8); MONO % 8.2 % (0.0-10.0); NEUT # 3.5 K/uL (1.8-7.0); NEUT % 65.6 % (50.0-75.0); NRBC % 0.1 % (0.0-2.0); RBC 4.48 Mil/uL (4.40-5.90); RED CELL DISTRIBUTION WIDTH 13.6 % (11.5-14.5); WHITE BLOOD COUNT 5.3 K/uL (4.8-10.8)
[2018-06-02 09:43] LABS: PROTHROMBIN TIME 10.6 SECONDS (9.7-12.2)
[2018-06-02 09:48] LABS: ALB/GLOB RATIO 1.5 (1.0-2.1); ALBUMIN 4.3 g/dL (3.5-5.0); ALT/SGPT 35 U/L (21-72); AST/SGOT 36 U/L (17-59); BLOOD UREA NITROGEN 19 mg/dL (9-20); CALCIUM 8.9 mg/dl (8.6-10.4); GFR NON-AFRICAN AMERICAN > 60
[2018-06-02] MEDS ORDERED: Iodixanol 320 MG/ML 100 ML BOTTLE IV ONE (09:58)
--- NOTE | 2018-06-02 10:19 | RAD ---
Date of service: 06/02/2018 PROCEDURE: CHEST RADIOGRAPH, 1 VIEW HISTORY: chest pain COMPARISON: CT chest 05/02/2018. And superior 2017 chest x-ray FINDINGS: LUNGS: An approximately 18 mm nodular opacity in the mid right lung zone is noted not present are perceived on the 2018 chest x-ray. No definite air bronchograms within it are seen. This chest x-ray current appearance is compatible with the recent CT chest 05/02/2018 appearance of a nodular pleural based soft tissue pathology. Malignancy is the diagnosis of exclusion. PLEURA: No pneumothorax or pleural fluid seen. CARDIOVASCULAR: There is presence of aortic atherosclerotic calcification on x-ray. Minimal cardiomegaly probable. No significant appearing pulmonary venous congestion. OSSEOUS STRUCTURES: No significant abnormalities. VISUALIZED UPPER ABDOMEN: Normal. OTHER FINDINGS: None. IMPRESSION: Right mid lung zone 18 mm nodular opacity corresponding to the right lateral pleural-based nodular soft tissue pathology on the CT chest of 05/02/2018. Malignancy is the diagnosis of exclusion.
--- NOTE | 2018-06-02 11:20 | CT ---
Date of service: 06/02/2018 PROCEDURE: CT Chest with contrast (Pulmonary Angiogram) HISTORY: chest pain, pleuritic pain COMPARISON: 05/02/2018 CT thoraxSummary of findings on the comparison examination: 3.4 x 1.0 centimeter subpleural opacity in the right lower lobe with spiculated margins. This could represent pneumonia though malignancy is not excluded TECHNIQUE: Axial computed tomography images were obtained of the chest in the pulmonary arterial phase of enhancement. Coronal and sagittal reformatted images were created and reviewed. Intravenous contrast dose: 100 cc Visipaque 320. Mean Hounsfield value in the main pulmonary artery: 348.11 Radiation dose: Total exam DLP = 422.48 mGy-cm. This CT exam was performed using one or more of the following dose reduction techniques: Automated exposure control, adjustment of the mA and/or kV according to patient size, and/or use of iterative reconstruction technique. FINDINGS: PULMONARY ARTERIES: Unremarkable. No pulmonary embolism. AORTA: Atherosclerotic calcification and mural plaque present. Findings are seen throughout the aorta LUNGS: Redemonstration of pleural base mass superior segment right lower lobe. The mass abuts the pleura including major fissure and measures 1.4 x 3.5 cm. Failure to resolve suggests either a chronic/indolent process or neoplasm. Follow-up recommended. Noninvasive follow-up with PET scan recommended. If tissue sampling is desired the mass is amenable to percutaneous access/sampling. Stable scarring right apex/right upper lobe. PLEURAL SPACES: Unremarkable. No effusion or pneumothorax. HEART: Unremarkable. No cardiomegaly. No significant pericardial effusion. LYMPH NODES: No lymphadenopathy. BONES, CHEST WALL: Unremarkable. No fracture or destructive lesion OTHER FINDINGS: Unremarkable. IMPRESSION: Unremarkable CT pulmonary angiogram. No pulmonary embolus. Suspicious peripheral pulmonary/pleural mass essentially unchanged compared to 05/02/2018. Failure to resolve requires further evaluation described in greater detail above.
[2018-06-02 11:22] VITALS: BP 124/64; PULSE 59; RESP 20; TEMP 97.9
== END 2018-06-02 12:47 | disposition home or self-care (01) ==
LOC: C.ER 08:19
DX: R07.89 Other chest pain (principal)
CPT/HCPCS: 71045; 71275; 80053; 84484; 85025; 85610; 85730; 93005; 99285; Q9967

== ENCOUNTER 2018-08-13 10:56 | Outpatient (CLI) | payer MEDICARE | END 2018-08-13 10:57 | disposition home or self-care (01) | LOC: C.CTH 10:56 | DX: R91.8 Other nonspecific abnormal finding of lung field (principal); J43.9 Emphysema, unspecified ==